=== PATIENT | female | born 1960 | race Two or more races ===

== ENCOUNTER 2021-01-19 13:47 | Observation (INO) | payer MEDICARE, OTHER ==
[~2021-01-19] VITALS: Ht 152.4 cm; Wt 73.0 kg
--- NOTE | 2021-01-19 14:10 | NUR ---
PT BIB CARE FLIGHT FROM [place]. PT WAS HAVING EPIGASTRIC PAIN FOR 3 DAYS WITH NAUSEA AND VOMITTING. PT WENT TO ER AND WAS FOUND TO HAVE AN ELEVATED TROP, BUN AND CREAT. PT FLOWN IN FOR POSSIBLE NSTEMI. MEDS GIVEN FILM CREW MEMBER: 2MG MORPHINE, 4MG ZOFRAN, 324 ASPIRIN, 20MG PEPCID, 1MG DILAUDID, 80MG LOVENOX. 1 LITER OF SALINE. PT RESTING IN [facility]. EKG COMPLETE. CONNECTED TO MONITORING.
[2021-01-19 14:26] LABS: BASOPHILS % (AUTO) 1 % (0-1); EOSINOPHILS % (AUTO) 0 % (1-7); LYMPHOCYTES % (AUTO) 13 % (22-44); MEAN CORPUSCULAR HEMOGLOBIN 31.4 pg (27.0-34.8); MEAN CORPUSCULAR HGB CONC 32.8 g/dL (32.4-35.8); MEAN PLATELET VOLUME 9.4 fL (7.4-10.4); MONOCYTES % (AUTO) 5 % (2-9); NEUTROPHILS % (AUTO) 82 % (42-75); PLATELET COUNT 255 x10^3/uL (130-400); RED BLOOD COUNT 5.39 x10^6/uL (3.82-5.3); RED CELL DISTRIBUTION WIDTH 13.9 % (9.6-15.2)
[2021-01-19 14:34] LABS: ALANINE AMINOTRANSFERASE 55 U/L (12-78); ALBUMIN 3.3 g/dL (3.4-5.0); ANION GAP 7 mmol/L (5-15); CALCIUM 8.7 mg/dL (8.5-10.1); CHLORIDE 110 mmol/L (98-107)
[2021-01-19 14:41] LABS: ALKALINE PHOSPHATASE 69 U/L (45-117); BILIRUBIN,TOTAL 0.4 mg/dL (0.2-1.0); TOTAL PROTEIN 7.5 g/dL (6.4-8.2); TROPONIN I 0.078 ng/mL (0.000-0.045)
[2021-01-19] MEDS ORDERED: hydrALAzine 20 MG/ML, 1ML IVPush PRN (16:30)
[2021-01-19] MEDS ORDERED: ONDANSETRON 2MG/ML, 2ML IVPush PRN (16:30)
[2021-01-19] MEDS ORDERED: METHOCARBAMOL 500 MG TABLET PO PRN (16:30)
[2021-01-19] MEDS ORDERED: BACLOFEN 10 MG TABLET PO PRN (16:30)
[2021-01-19] MEDS ORDERED: ACETAMINOPHEN 325 MG TABLET PO PRN (16:30)
[2021-01-19] MEDS ORDERED: morphine SULFATE 10 MG/ML, 1ML IVPush PRN (16:30)
[2021-01-19] MEDS ORDERED: ONDANSETRON ODT 4 MG PO PRN (16:30)
[2021-01-19] MEDS ORDERED: PROMETHAZINE 25 MG/ML, 1ML IM PRN (16:30)
[2021-01-19] MEDS ORDERED: metFORMIN 500 MG TABLET PO SCH (17:00)
[2021-01-19] MEDS ORDERED: LISI1TAB23 PO (18:21)
[2021-01-19] MEDS ORDERED: CARV25TA PO (18:21)
[2021-01-19] MEDS ORDERED: ATOR20TA86 PO (18:21)
[2021-01-19] MEDS: CARVEDILOL 25 MG TABLET PO SCH (18:22)
[2021-01-19] MEDS: PANTOPRAZOLE 20MG TABLET PO SCH (18:22)
[2021-01-19] MEDS: SODIUM CHLORIDE 0.9% 1,000 ML IV SCH (18:36)
[2021-01-19 19:06] VITALS: BP 118/76
[2021-01-19] MEDS ORDERED: ATORVASTATIN 20 MG TABLET PO SCH (21:00)
[2021-01-19 22:24] LABS: TROPONIN I 0.085 ng/mL (0.000-0.045)
[2021-01-20] MEDS: SODIUM CHLORIDE 0.9% 1,000 ML IV SCH (00:59)
[2021-01-20 01:52] VITALS: BP 124/66
[2021-01-20 05:30] LABS: BASOPHILS % (AUTO) 1 % (0-1); EOSINOPHILS % (AUTO) 0 % (1-7); LYMPHOCYTES % (AUTO) 37 % (22-44); MEAN CORPUSCULAR HEMOGLOBIN 31.7 pg (27.0-34.8); MEAN CORPUSCULAR HGB CONC 33.6 g/dL (32.4-35.8); MEAN PLATELET VOLUME 9.1 fL (7.4-10.4); MONOCYTES % (AUTO) 9 % (2-9); NEUTROPHILS % (AUTO) 54 % (42-75); PLATELET COUNT 201 x10^3/uL (130-400); RED BLOOD COUNT 4.52 x10^6/uL (3.82-5.3); RED CELL DISTRIBUTION WIDTH 13.8 % (9.6-15.2)
[2021-01-20 05:45] LABS: CHLORIDE 113 mmol/L (98-107)
[2021-01-20] MEDS: CARVEDILOL 25 MG TABLET PO SCH ×2 (05:46→18:03)
[2021-01-20] MEDS: PANTOPRAZOLE 20MG TABLET PO SCH ×2 (05:47→18:03)
[2021-01-20 05:59] LABS: ALANINE AMINOTRANSFERASE 38 U/L (12-78); ALBUMIN 2.6 g/dL (3.4-5.0); ALKALINE PHOSPHATASE 53 U/L (45-117); ANION GAP 8 mmol/L (5-15); BILIRUBIN,TOTAL 0.6 mg/dL (0.2-1.0); CREATININE 1.65 mg/dL (0.55-1.02); TOTAL PROTEIN 5.9 g/dL (6.4-8.2)
[2021-01-20 06:55] VITALS: BP 101/67
[2021-01-20] MEDS ORDERED: LISINOPRIL 10 MG TABLET PO SCH (09:00)
[2021-01-20 12:44] VITALS: BP 93/55
[2021-01-20] MEDS ORDERED: METF500T PO (15:45)
[2021-01-20] MEDS ORDERED: metFORMIN 500 MG TABLET PO SCH (17:00)
== END 2021-01-20 19:44 | disposition home or self-care (01) ==
LOC: ED 14:38 → 5SO 14:39 → INTOOBSV 14:39 → SUATTDRO 14:58 → ED 15:18
PROVIDERS: ADMIT Internal Medicine; ATTEND Hospitalist
DX: R07.89 Other chest pain (principal); K57.30 Diverticulosis of large intestine without perforation or abscess without bleeding; R79.89 Other specified abnormal findings of blood chemistry; I13.0 Hypertensive heart and chronic kidney disease with heart failure and stage 1 through stage 4 chronic kidney disease, or unspecified chronic kidney disease; E11.22 Type 2 diabetes mellitus with diabetic chronic kidney disease; I50.9 Heart failure, unspecified; N18.30 Chronic kidney disease, stage 3 unspecified; K21.9 Gastro-esophageal reflux disease without esophagitis; F15.10 Other stimulant abuse, uncomplicated; F17.200 Nicotine dependence, unspecified, uncomplicated; E78.5 Hyperlipidemia, unspecified; I21.4 Non-ST elevation (NSTEMI) myocardial infarction; S22.42XS Multiple fractures of ribs, left side, sequela; X58.XXXS Exposure to other specified factors, sequela; Z90.710 Acquired absence of both cervix and uterus; Z90.49 Acquired absence of other specified parts of digestive tract; Z79.899 Other long term (current) drug therapy
CPT/HCPCS: 36415; 71045; 74176; 80053; 83605; 83735; 84484; 85025; 93005; 96360; 96361; 99285; G0378; J7030